=== PATIENT | male | born 1995 | race Caucasian/White ===

== ENCOUNTER 2016-11-14 11:49 | Emergency (ER) | payer SELFPAY ==
[~2016-11-14] VITALS: Ht 167.6 cm; Wt 63.5 kg
[~2016-11-14 11:49] MED LIST: ALBU8.5H4 IH; ALPR1TAB2 PO; AMOX-358 PO; CEPH500T PO; CIPR500T4 PO; FAMO20TA5 PO; HYDR-3812 PO; MNTL10T PO; NAPR500T PO; NAPR500T3 PO; ONDA8TAB13 PO; PHEN-639 PO; PRD20T PO; TAMS0.4C98 PO; TRAM-42 PO
--- NOTE | 2016-11-14 12:12 | ED EENT ---
History of Present Illness General Chief Complaint: Dental Problems/Pain Stated Complaint: JAW PAIN/SWELLING Nursing Triage Note: PT REPORTS R LOWER BACK DENTAL PAIN AND SWELLING. HE STATES HE BELIEVES IT IS HIS WISDOM TOOTH COMING IN. HE DENIES FEVER OR ANY OTHER SYMPTOMS. Source: patient Exam Limitations: no limitations History of Present Illness Time seen by provider: 12:11 Initial Comments Patient is not in the room or ED bathrooms. Registration staff reports patient ambulated down the modi to the main modi and left. Did not stop at the [facility] desk or notify staff of leaving. Nursing staff was not notified of patient leaving. Left prior to being seen. Allergies and Home Medications Allergies Coded Allergies: No Known Drug Allergies (Unverified , 07/08/16) Home Medications Alprazolam 1 Mg Tablet 1 MG PO QID (Reported) Amoxicillin/Potassium Clav 1 Each Tablet #20 1 EACH PO BID Prescribed by: YESENIA GALVEZ on 08/01/162035 Naproxen 500 Mg Tablet #20 500 MG PO BID Prescribed by: YESENIA GALVEZ on 08/01/162035 Tramadol HCl 50 Mg Tablet #20 50 MG PO Q4H Prescribed by: YESENIA GALVEZ on 08/01/162035 Review of Systems Constitutional: other (left without being seen) Past Dnnwxyy-Fkegvw-Knbzqp Hx Patient Social History Alcohol Use: Denies Use Recreational Drug Use: No Smoking Status: Current Everyday Smoker Type Used: Cigarettes 2nd Hand Smoke Exposure: No Recent Foreign Travel: No Contact w/Someone Who Travel: No Recent Infectious Disease Expo: No Recent Hopitalizations: No Immunizations Up To Date Tetanus Booster (TDap): Unknown Date of Influenza Vaccine: May 29, 2016 Seasonal Allergies Seasonal Allergies: Yes Surgeries HX Surgeries: No Respiratory Hx Respiratory Disorders: Yes Respiratory Disorders: Asthma Cardiovascular Hx Cardiac Disorders: No Neurological Hx Neurological Disorders: No Genitourinary Hx Genitourinary Disorders: Yes Genitourinary Disorders: Kidney Stones Gastrointestinal Hx Gastrointestinal Disorders: No Musculoskeletal Hx Musculoskeletal Disorders: No Endocrine Hx Endocrine Disorders: No HEENT HX ENT Disorders: No Cancer Hx Cancer: No Psychosocial Hx Psychiatric Problems: Yes Behavioral Health Disorders: Anxiety Integumentary HX Skin/Integumentary Disorder: No Blood Transfusions Hx Blood Disorders: No Physical Exam Vital Signs Vital Sign - Last 12Hours 11/14/16 11:50 Temp 98.9 Pulse 75 Resp 16 B/P 124/76 Pulse Ox 99 O2 Delivery Room Air General Appearance: other (left without being seen) Progress/Results/Core Measures Results/Orders Vital Signs/I&O Vital Sign - Last 12Hours 11/14/16 11:50 Temp 98.9 Pulse 75 Resp 16 B/P 124/76 Pulse Ox 99 O2 Delivery Room Air Blood Pressure Mean: 92 Departure Impression Impression: Primary Impression: Patient left without being seen Disposition: (left without being seen) Condition: Against Medical Advice (left without being seen) Departure-Patient Inst. Decision time for Depature: 12:11 Referrals: NO,LOCAL PHYSICIAN (PCP/Family) Primary Care Physician CHRISTIE NICKERSON Nov 14, 2016 12:12
[2016-11-14 12:20] VITALS: BP 124/76
== END 2016-11-14 12:23 | disposition left against medical advice (07) ==
LOC: EDUNIT# 11:49 → ER 11:52
DX: R68.84 Jaw pain (principal); F17.210 Nicotine dependence, cigarettes, uncomplicated; Z53.21 Procedure and treatment not carried out due to patient leaving prior to being seen by health care provider
CPT/HCPCS: 99282

== ENCOUNTER 2017-06-22 10:01 | Emergency (ER) | payer SELFPAY ==
[~2017-06-22] VITALS: Ht 162.6 cm; Wt 61.2 kg
[2017-06-22 10:05] VITALS: BP 112/72
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
--- OUTSIDE RECORDS SUMMARY | 2017-06-22 10:07 | XMS REPORT | Continuity of Care Document ---
Author Author [employer] Organization [facility] Address Unknown Phone Unavailable Care Team Providers Care Java Flex Developer Name Role Phone [employer] Unavailable Unavailable Problems Medications Allergies, Adverse Reactions, Alerts Immunizations Results Vital Signs Encounters Location Location Details Encounter Type Encounter Number Reason For Visit Attending Provider ADM Date DC Date Status Source [facility] REF [id number] Merrill Lovean 12/23/20142014 [facility] [place] [id number] Attila Banks 12/23/20142014 [facility] RCR [id number] Leonid Calderon 01/06/2015 07/04/2015 Active [facility] Procedures Plan of Care Social History Assessment and Plan Family History Value Date Source Advance Directives Order Name Results Value Date Source
[2017-06-22] MEDS ORDERED: ALBU1.25 IH (10:16)
[2017-06-22] MEDS ORDERED: RT-ALBUTEROL/IPRATROPIUM 3 ML (DUONEB) VIAL INH ONE (10:30)
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
[2017-06-22 10:49] LABS: BASOPHILS # (AUTO) 0.1 10^3/uL (0.0-0.1); BASOPHILS % (AUTO) 1 % (0-10); EOSINOPHILS # (AUTO) 0.3 10^3/uL (0.0-0.3); EOSINOPHILS % (AUTO) 4 % (0-10); LYMPHOCYTES # (AUTO) 2.3 X 10^3 (1.0-4.0); LYMPHOCYTES % (AUTO) 29 % (12-44); MEAN CORPUSCULAR HEMOGLOBIN 32 PG (25-34); MEAN CORPUSCULAR HGB CONC 35 G/DL (32-36); MEAN CORPUSCULAR VOLUME 90 FL (80-99); MEAN PLATELET VOLUME 11.2 FL (7.4-10.4); MONOCYTES # (AUTO) 0.6 X 10^3 (0.0-1.0); MONOCYTES % (AUTO) 8 % (0-12); NEUTROPHILS # (AUTO) 4.7 X 10^3 (1.8-7.8); NEUTROPHILS % (AUTO) 59 % (42-75); PLATELET COUNT 209 10^3/uL (130-400); RED BLOOD COUNT 5.16 10^6/uL (4.35-5.85); RED CELL DISTRIBUTION WIDTH 12.8 % (10.0-14.5)
--- NOTE | 2017-06-22 11:06 | Diagnostic Imaging Report ---
INDICATION: Chest pain. COMPARISON: 09/12/2007 FINDINGS: Two views of the chest are obtained. Heart size is normal. The pulmonary vessels appear unremarkable. There is no pneumothorax, mediastinal widening or pleural fluid demonstrated. The lungs are clear. The osseous structures appear unremarkable. IMPRESSION: Negative chest. Dictated by: Dictated on workstation # [id number]
== END 2017-06-22 12:00 | disposition home or self-care (01) ==
LOC: EDUNIT# 10:01 → ER 10:04
DX: J45.909 Unspecified asthma, uncomplicated (principal); F41.9 Anxiety disorder, unspecified; Z87.442 Personal history of urinary calculi
CPT/HCPCS: 36415; 71020; 84484; 85025; 93005; 94640